=== PATIENT | female | born 1960 | race African-American/Black ===

== ENCOUNTER 2018-08-20 11:57 | Emergency (ER) | payer OTHER, SELFPAY ==
[2018-08-20 12:13] VITALS: BP 154/76; PULSE 72; RESP 16; TEMP 36.5; O2SAT 98; BMI 47.5
--- NOTE | 2018-08-20 12:30 | ED.SKABFB ---
HPI - Skin/Abscess/Foreign Bdy <Stephanie Villafana PA-C - Last Filed: 08/20/18 20:52> General Chief complaint: Skin/Abscess/Foreign Body Stated complaint: Rash on left buttock, and community relations assistant problem Time Seen by Provider: 08/20/18 12:21 Source: patient Mode of arrival: ambulatory Limitations: no limitations History of Present Illness HPI narrative: This 57-year-old female complains of increasingly painful rash which started on her left thigh crease about a week ago, 1 spot appeared on her vaginal area later and then ?welts? on her left gluteal area. She states initially somewhat itchy, then became painful, burning, radiates down her leg. She denies any fever, recent travel or recent illness. She denies any change in soaps, detergents, lotions. She denies any STD concerns or exposure to herpes. She does not know of any insect or spider bites. She has not noted any blisters, just states that she can feel bumps, though the lesions are difficult for her to see. She states she came in here because she is not able to get into her PCP until end of the week and this has become increasingly painful Related Data Previous Rx's Medication Instructions Recorded gabapentin 300 mg PO Q8H 7 Days #21 cap 08/20/18 lidocaine [Lidoderm] 2 patch TOP DAILY #30 each 08/20/18 valacyclovir [Valtrex] 1,000 mg PO TID 7 Days #21 tab 08/20/18 Review of Systems <Stephanie Villafana PA-C - Last Filed: 08/20/18 20:52> Review of Systems ROS Unobtainable: All systems reviewed & are unremarkable except as noted in HPI and below PFSH <Stephanie Villafana PA-C - Last Filed: 08/20/18 20:52> Medical History (Updated 08/20/18 @ 13:10 by Stephanie Villafana PA-C) Diabetes mellitus, insulin dependent (IDDM), controlled (Chronic) HTN (hypertension) (Chronic) Surgical History (Updated 08/20/18 @ 13:10 by Stephanie Villafana PA-C) History of Chiari malformation (Resolved) History of umbilical hernia repair (Resolved) Status post (Resolved) Social History Smoking Status: Never smoker Social History Smoking Status: Never smoker Exam <Stephanie Villafana PA-C - Last Filed: 08/20/18 20:52> Narrative Exam Narrative: GENERAL APPEARANCE: Patient sitting comfortably, in no distress. LUNGS: Clear to auscultation bilaterally. HEART: Rate and rhythm regular without murmur, normal S1 and S2, no S3 or S4. DERMATOLOGIC: Left glut there are clusters of erythematous papules a linear distribution on the medial L. glut and thigh. Some of the lesions are dry. There is single lesion left medial labia, also dry without surrounding erythema. These are in the S2 distribution Initial Vital Signs Initial Vital Signs: Vital Signs Temperature 97.7 F 08/20/18 12:13 Pulse Rate 72 08/20/18 12:13 Respiratory Rate 16 08/20/18 12:13 Blood Pressure 154/76 H 08/20/18 12:13 Pulse Oximetry 98 08/20/18 12:13 <Lucian Mckenzie DO - Last Filed: 08/21/18 07:17> Initial Vital Signs Initial Vital Signs: Vital Signs Temperature 97.7 F 08/20/18 12:13 Pulse Rate 72 08/20/18 12:13 Respiratory Rate 16 08/20/18 12:13 Blood Pressure 154/76 H 08/20/18 12:13 Pulse Oximetry 98 08/20/18 12:13 Course <Stephanie Villafana PA-C - Last Filed: 08/20/18 20:52> Vital Signs - 8 hr 08/20/18 13:11 Pulse Rate 74 Respiratory Rate 17 Blood Pressure 146/69 H Pulse Oximetry 97 <Lucian Mckenzie DO - Last Filed: 08/21/18 07:17> Vital Signs - 8 hr 08/20/18 13:11 Pulse Rate 74 Respiratory Rate 17 Blood Pressure 146/69 H Pulse Oximetry 97 Discharge Plan Departure Patient Disposition: Home Clinical Impression: Herpes zoster Qualifiers: Herpes zoster complications: without complications Qualified Code(s): B02.9 - Zoster without complications Discharge Date/Time: 08/20/18 13:12 Interventions: ED Discharge Assessment Last Done: 08/20/18 13:11 Instructions: DI for Shingles Activity Restrictions/Additional Instructions: Your rash is most consistent with shingles though not quite typical as I do not see any blisters today, however that could be because the rash is a few days old. Given that you had new spots show up a few days ago, we will treat with antivirals as we talked about. Please start this as soon as you pick it up and take at least 2 doses today (every 8 hours). I have also prescribed skin patches for you to put on as well as a medicine called gabapentin or Neurontin, which can be helpful for nerve pain. Remember that this can make you sleepy and not to drive. It is okay to take an extra dose at bedtime however if you find that you need it. Please follow-up with your PCP in a few days as you have planned. Prescriptions: New valacyclovir [Valtrex] 1 gram tablet 1,000 mg PO TID 7 Days Qty: 21 RF: 0 lidocaine [Lidoderm] 5 % adhesive patch,medicated 2 patch TOP DAILY Qty: 30 RF: 0 gabapentin 300 mg capsule 300 mg PO Q8H 7 Days Qty: 21 RF: 0 Referrals: Feng Larose MD [Non-Staff] - <Lucian Mckenzie DO - Last Filed: 08/21/18 07:17> Cosign ED Attending Cosrosemaryature Attestation: I was available for consultation during this patient's emergency department encounter
[2018-08-20 13:11] VITALS: BP 146/69; PULSE 74; RESP 17; O2SAT 97
== END 2018-08-20 13:12 | disposition home or self-care (01) ==
PROVIDERS: Emergency Provider Internal Medicine
DX: B02.9 Zoster without complications (principal)
CPT/HCPCS: 99282; 99283

== ENCOUNTER 2018-10-16 06:23 | Emergency (ER) | payer OTHER, SELFPAY ==
[2018-10-16 06:28] VITALS: BP 154/88; PULSE 67; RESP 16; TEMP 36.5; O2SAT 98; BMI 47.5
[2018-10-16 06:40] VITALS: BP 129/80; PULSE 57; RESP 14; O2SAT 99
--- NOTE | 2018-10-16 06:43 | DI.RAD.S_ITS ---
PROCEDURE: XR CHEST 1V INDICATIONS: chest pain TECHNIQUE: One view of the chest was acquired. COMPARISON: None. FINDINGS: Surgical changes and devices: None. Lungs and pleura: Lungs are clear. No pleural effusions or pneumothorax. Mediastinum: Mediastinal contours appear normal. Heart size is normal. Bones and chest wall: No suspicious bony lesions. Overlying soft tissues appear unremarkable. IMPRESSION: No acute cardiopulmonary disease. Dictated by: Amena Bazzi M.D. on 10/16/2018 at 8:18 Approved by: Amena Bazzi M.D. on 10/16/2018 at 8:18
--- NOTE | 2018-10-16 06:44 | ED.CHESTPAIN ---
HPI - Chest Pain General Chief Complaint: Chest Pain Stated Complaint: chest pains since last monday Time Seen by Provider: 10/16/18 06:28 Source: patient Mode of arrival: ambulatory Limitations: no limitations History of Present Illness HPI narrative: A 58-year-old female nonsmoker with hypertension presents with a chief complaint brief episodes of sharp and stabbing chest pain since Monday. She denies provocation, palliation or radiation. She denies associated symptoms such as dizziness, weakness, lightheadedness, diaphoresis, or shortness of breath. She denies any history of the same. She does travel frequently for work within the [employer]. She denies any history of cancer or blood clot. She denies any change in medication, diet or activity level. She denies any recent injury. She states that the episodes of pain are left anterior chest, sharp and stabbing, throbbing and last sometimes only seconds. MD complaint: chest pain Onset (ago): day(s) Duration: intermittent Pain location: left chest Severity: mild Quality: sharp Pain radiation: none Relieving factors: nothing Exacerbating factors: nothing Treatments prior to arrival chest pain: none Related Data On Oral Contraceptives: No Previous Rx's Medication Instructions Recorded lidocaine [Lidoderm] 2 patch TOP DAILY #30 each 08/20/18 Allergies Allergy/AdvReac Type Severity Reaction Status Date / Time lisinopril Allergy Verified 10/16/18 06:47 promethazine Allergy Verified 10/16/18 06:48 Review of Systems Constitutional Denies chills, Denies fever(s), Denies lethargy and Denies weakness Eyes Denies change in vision, Denies eye discharge, Denies irritation and Denies loss of vision ENT Ears, Nose, Mouth, and Throat: Denies change in voice, Denies neck pain and Denies sore throat Cardiovascular Reports chest pain, Denies irregular heart rhythm, Denies lightheadedness, Denies palpitations, Denies dyspnea, Denies dyspnea on exertion and Denies orthopnea Respiratory Denies cough, Denies dyspnea, Denies dyspnea on exertion and Denies wheezing Gastrointestinal Gastrointestinal: Denies abdominal pain, Denies change in bowel habits, Denies diarrhea, Denies nausea and Denies vomiting Genitourinary Denies hematuria, Denies flank pain, Denies urinary incontinence and Denies urinary urgency Musculoskeletal Denies neck pain Integumentary/Breasts Denies pruritus, Denies erythema, Denies rash and Denies wounds Neurologic Denies confusion, Denies loss of vision and Denies weakness Psychiatric Denies anxiety, Denies confusion, Denies depression, Denies homicidal ideation and Denies suicidal ideation Endocrine Denies palpitations Hematologic/Lymphatic Denies easy bruising Allergic/Immunologic Denies wheezing [facility] Medical History Diabetes mellitus, insulin dependent (IDDM), controlled (Chronic) HTN (hypertension) (Chronic) Surgical History History of Chiari malformation (Resolved) History of umbilical hernia repair (Resolved) Status post (Resolved) Social History (System 08/22/18 @ 09:04 by Neena Recinos) Smoking Status: Never smoker Social History Smoking Status: Never smoker Exam Narrative Exam Narrative: GENERAL: 58-year-old female appears younger than stated age, in mild distress, smiling and resting HEAD: Atraumatic. Normocephalic. No temporal or scalp tenderness. EYES: Pupils equal round and reactive. Extraocular motions intact. No scleral icterus. No injection or drainage. ENT: Nose without bleeding, purulent drainage or septal hematoma. Throat without erythema, tonsillar hypertrophy or exudate. Uvula midline. Airway patent. NECK: Trachea midline. No JVD or lymphadenopathy. Supple, nontender, no meningeal signs. CARDIOVASCULAR: Regular rate and rhythm without murmurs, gallops, or rubs. RESPIRATORY: Clear to auscultation. Breath sounds equal bilaterally. No wheezes, rales, or rhonchi. GASTROINTESTINAL: Abdomen soft, non-tender, nondistended. No hepato-splenomegaly, or palpable masses. No guarding. EXTREMITIES: No clubbing, cyanosis, or edema. No joint tenderness, effusion, or edema noted. BACK: Nontender without deformity or crepitance. No flank tenderness. NEURO: AOx3. SKIN: No rash or erythema. Initial Vital Signs Initial Vital Signs: Vital Signs Temperature 97.7 F 10/16/18 06:28 Pulse Rate 67 10/16/18 06:28 Respiratory Rate 16 10/16/18 06:28 Blood Pressure 154/88 H 10/16/18 06:28 Pulse Oximetry 98 10/16/18 06:28 Scores HEART Score Heart Score history: Slightly Suspicious Heart Score EKG: Normal Heart Score Age: 45-64 years old Heart Score risk factors: 1-2 risk factors Heart Score troponin: < or = to normal limit Heart Score Total: 2 Course Orders Ordered: Discontinued Medications Aspirin (Aspirin Chew) 324 mg PO NOW ONE Stop: 10/16/18 06:44 Last Admin: 10/16/18 06:51 Dose: 324 mg Vital Signs - 8 hr 10/16/18 06:28 10/16/18 06:40 Temperature 97.7 F Pulse Rate 67 57 L Respiratory Rate 16 14 Blood Pressure 154/88 H Blood Pressure [Right Arm] 129/80 Pulse Oximetry 98 99 MDM - Chest Pain Lab Data Result diagrams: 10/16/18 06:40 10/16/18 06:40 Lab Results 10/16/18 10/16/18 Range/Units 06:40 06:40 WBC 4.7 (4.5-11.0) X10^3/uL RBC 4.57 (4.0-5.2) X10^6/uL Hgb 13.5 (12.0-16.0) g/dL Hct 40.7 (36-46) % MCV 89.1 (80-100) fL MCH 29.5 (26-34) PG MCHC 33.1 (30-36) % RDW 13.3 (11.6-14.8) % Plt Count 342 (150-400) X10^3/uL Neut % (Auto) 43.3 L (50-75) % Lymph % (Auto) 38.2 (25-40) % [place] % (Auto) 11.3 (3-14) % Eos % (Auto) 6.0 H (2-4) % Baso % (Auto) 1.2 (0-2) % Neut # (Auto) 2000 (9654-0925) /uL Lymph # (Auto) 1800 (8836-4029) /uL [place] # (Auto) 500 (0-900) /uL Eos # (Auto) 300 (0-450) /uL Baso # (Auto) 100 (0-100) /uL Sodium 138 (137-145) mmol/L Potassium 4.1 (3.4-5.1) mmol/L Chloride 104 (98-107) mmol/L Carbon Dioxide 25 (22-32) mmol/L BUN 16 (7-17) mg/dL Creatinine 0.80 (0.52-1.04) mg/dL Estimated GFR > 60.0 (>60) mL/min BUN/Creatinine Ratio 20.0 (6-22) Glucose 149 H (70-100) mg/dL Calcium 9.6 (8.4-10.2) mg/dL Total Bilirubin 0.6 (0.2-1.3) mg/dL AST 18 (14-36) IU/L ALT 20 (9-52) IU/L Alkaline Phosphatase 49 (38-126) U/L Total Creatine Kinase 98 (30-135) U/L CK-MB (CK-2) TNP CK-MB (CK-2) Rel Index TNP Troponin I < 0.012 (0.01-0.034) ng/mL Total Protein 7.5 (6.3-8.2) g/dL Albumin 4.1 (3.5-5.0) g/dL Globulin 3.4 (1.7-4.1) g/dL Albumin/Globulin Ratio 1.2 (1.0-2.8) Lipase 140 (23-300) U/L ECG Data Attestation: I personally reviewed and interpreted this ECG as follows: Prior ECG tracings: not available for review Interpretation: EKG is normal sinus rhythm rate [54] and free of any signs of ischemia or ectopy. No ST segmental elevation or depression. No T wave inversions. P are 137, QRS 87, QTC 407 Discharge Plan Departure Patient Disposition: Home Clinical Impression: Atypical chest pain Discharge Date/Time: 10/16/18 07:55 Interventions: ED Discharge Assessment Last Done: 10/16/18 08:13 Instructions: DI for Atypical Chest Pain Activity Restrictions/Additional Instructions: *You have been diagnosed with [ atypical chest pain ] *What to do: *Take medications as directed *Follow up with your primary care provider in 2-3 days, call for an appointment. Let them know you were seen in the Emergency Department and that we ask that you be seen in follow up *Return to ER if you should have any new, worsening or concerning symptoms Prescriptions: No Action lidocaine [Lidoderm] 5 % adhesive patch,medicated 2 patch TOP DAILY Qty: 30 RF: 0 Referrals: Feng Larose MD [Primary Care Provider] -
--- NOTE | 2018-10-16 06:48 | ED_ITS ---
HPI - Chest Pain General Chief Complaint: Chest Pain Stated Complaint: chest pains since last monday Time Seen by Provider: 10/16/18 06:28 Source: patient Mode of arrival: ambulatory Limitations: no limitations History of Present Illness HPI narrative: A 58-year-old female nonsmoker with hypertension presents with a chief complaint brief episodes of sharp and stabbing chest pain since Monday. She denies provocation, palliation or radiation. She denies associated symptoms such as dizziness, weakness, lightheadedness, diaphoresis, or shortness of breath. She denies any history of the same. She does travel frequently for work within the [employer] [facility] [employer]. She denies any history of cancer or blood clot. She denies any change in medication, diet or activity level. She denies any recent injury. She states that the episodes of pain are left anterior chest, sharp and stabbing, throbbing and last sometimes only seconds. MD complaint: chest pain Onset (ago): day(s) Duration: intermittent Pain location: left chest Severity: mild Quality: sharp Pain radiation: none Relieving factors: nothing Exacerbating factors: nothing Treatments prior to arrival chest pain: none Related Data On Oral Contraceptives: No Previous Rx's Medication Instructions Recorded lidocaine [Lidoderm] 2 patch TOP DAILY #30 each 08/20/18 Allergies Allergy/AdvReac Type Severity Reaction Status Date / Time lisinopril Allergy Verified 10/16/18 06:47 promethazine Allergy Verified 10/16/18 06:48 Review of Systems Constitutional Denies chills, Denies fever(s), Denies lethargy and Denies weakness Eyes Denies change in vision, Denies eye discharge, Denies irritation and Denies loss of vision ENT Ears, Nose, Mouth, and Throat: Denies change in voice, Denies neck pain and Den ies sore throat Cardiovascular Reports chest pain, Denies irregular heart rhythm, Denies lightheadedness, Denies palpitations, Denies dyspnea, Denies dyspnea on exertion and Denies orthopnea Respiratory Denies cough, Denies dyspnea, Denies dyspnea on exertion and Denies wheezing Gastrointestinal Gastrointestinal: Denies abdominal pain, Denies change in bowel habits, Denies diarrhea, Denies nausea and Denies vomiting Genitourinary Denies hematuria, Denies flank pain, Denies urinary incontinence and Denies urinary urgency Musculoskeletal Denies neck pain Integumentary/Breasts Denies pruritus, Denies erythema, Denies rash and Denies wounds Neurologic Denies confusion, Denies loss of vision and Denies weakness Psychiatric Denies anxiety, Denies confusion, Denies depression, Denies homicidal ideation and Denies suicidal ideation Endocrine Denies palpitations Hematologic/Lymphatic Denies easy bruising Allergic/Immunologic Denies wheezing [facility] Medical History Diabetes mellitus, insulin dependent (IDDM), controlled (Chronic) HTN (hypertension) (Chronic) Surgical History History of Chiari malformation (Resolved) History of umbilical hernia repair (Resolved) Status post (Resolved) Social History (System 08/22/18 @ 09:04 by Neena Recinos) Smoking Status: Never smoker Social History Smoking Status: Never smoker Exam Narrative Exam Narrative: GENERAL: 58-year-old female appears younger than stated age, in mild distress, smiling and resting HEAD: Atraumatic. Normocephalic. No temporal or scalp tenderness. EYES: Pupils equal round and reactive. Extraocular motions intact. No scleral icterus. No injection or drainage. ENT: Nose without bleeding, purulent drainage or septal hematoma. Throat without erythema, tonsillar hypertrophy or exudate. Uvula midline. Airway patent. NECK: Trachea midline. No JVD or lymphadenopathy. Supple, nontender, no meningeal signs. CARDIOVASCULAR: Regular rate and rhythm without murmurs, gallops, or rubs. RESPIRATORY: Clear to auscultation. Breath sounds equal bilaterally. No wheezes, rales, or rhonchi. GASTROINTESTINAL: Abdomen soft, non-tender, nondistended. No hepato- splenomegaly, or palpable masses. No guarding. EXTREMITIES: No clubbing, cyanosis, or edema. No joint tenderness, effusion, or edema noted. BACK: Nontender without deformity or crepitance. No flank tenderness. NEURO: AOx3. SKIN: No rash or erythema. Initial Vital Signs Initial Vital Signs: Vital Signs Temperature 97.7 F 10/16/18 06:28 Pulse Rate 67 10/16/18 06:28 Respiratory Rate 16 10/16/18 06:28 Blood Pressure 154/88 H 06/04/19 06:28 Pulse Oximetry 98 10/16/18 06:28 Scores HEART Score Heart Score history: Slightly Suspicious Heart Score EKG: Normal Heart Score Age: 45-64 years old Heart Score risk factors: 1-2 risk factors Heart Score troponin: < or = to normal limit Heart Score Total: 2 Course Orders Ordered: Discontinued Medications Aspirin (Aspirin Chew) 324 mg PO NOW ONE Stop: 10/16/18 06:44 Last Admin: 10/16/18 06:51 Dose: 324 mg Vital Signs - 8 hr 10/16/18 06:28 10/16/18 06:40 Temperature 97.7 F Pulse Rate 67 57 L Respiratory Rate 16 14 Blood Pressure 154/88 H Blood Pressure [Right Arm] 129/80 Pulse Oximetry 98 99 MDM - Chest Pain Lab Data Result diagrams: 10/16/18 06:40 10/16/18 06:40 Lab Results 10/16/18 10/16/18 Range/Units 06:40 06:40 WBC 4.7 (4.5-11.0) X10^3/uL RBC 4.57 (4.0-5.2) X10^6/uL Hgb 13.5 (12.0-16.0) g/dL Hct 40.7 (36-46) % MCV 89.1 (80-100) fL MCH 29.5 (26-34) PG MCHC 33.1 (30-36) % RDW 13.3 (11.6-14.8) % Plt Count 342 (150-400) X10^3/uL Neut % (Auto) 43.3 L (50-75) % Lymph % (Auto) 38.2 (25-40) % [place] % (Auto) 11.3 (3-14) % Eos % (Auto) 6.0 H (2-4) % Baso % (Auto) 1.2 (0-2) % Neut # (Auto) 2000 (7595-8560) /uL Lymph # (Auto) 1800 (7982-9289) /uL [place] # (Auto) 500 (0-900) /uL Eos # (Auto) 300 (0-450) /uL Baso # (Auto) 100 (0-100) /uL Sodium 138 (137-145) mmol/L Potassium 4.1 (3.4-5.1) mmol/L Chloride 104 (98-107) mmol/L Carbon Dioxide 25 (22-32) mmol/L BUN 16 (7-17) mg/dL Creatinine 0.80 (0.52-1.04) mg/dL Estimated GFR > 60.0 (>60) mL/min BUN/Creatinine Ratio 20.0 (6-22) Glucose 149 H (70-100) mg/dL Calcium 9.6 (8.4-10.2) mg/dL Total Bilirubin 0.6 (0.2-1.3) mg/dL AST 18 (14-36) IU/L ALT 20 (9-52) IU/L Alkaline Phosphatase 49 (38-126) U/L Total Creatine Kinase 98 (30-135) U/L CK-MB (CK-2) TNP CK-MB (CK-2) Rel Index TNP Troponin I < 0.012 (0.01-0.034) ng/mL Total Protein 7.5 (6.3-8.2) g/dL Albumin 4.1 (3.5-5.0) g/dL Globulin 3.4 (1.7-4.1) g/dL Albumin/Globulin Ratio 1.2 (1.0-2.8) Lipase 140 (23-300) U/L ECG Data Attestation: I personally reviewed and interpreted this ECG as follows: Prior ECG tracings: not available for review Interpretation: EKG is normal sinus rhythm rate [54] and free of any signs of ischemia or ectopy. No ST segmental elevation or depression. No T wave inver sions. P are 137, QRS 87, QTC 407 Discharge Plan Departure Patient Disposition: Home Clinical Impression: Atypical chest pain Discharge Date/Time: 10/16/18 07:55 Interventions: ED Discharge Assessment Last Done: 10/16/18 08:13 Instructions: DI for Atypical Chest Pain Activity Restrictions/Additional Instructions: *You have been diagnosed with [ atypical chest pain ] *What to do: *Take medications as directed *Follow up with your primary care provider in 2-3 days, call for an appointment. Let them know you were seen in the Emergency Department and that we ask that you be seen in follow up *Return to ER if you should have any new, worsening or concerning symptoms Prescriptions: No Action lidocaine [Lidoderm] 5 % adhesive patch,medicated 2 patch TOP DAILY Qty: 30 RF: 0 Referrals: Feng Larose MD [Primary Care Provider] -
[2018-10-16] MEDS: ASPIRIN 81 MG TAB 324 MG PO (06:51)
[2018-10-16 06:54] LABS: Add Manual Diff / Slide Review NO; Basophils Absolute Auto 100 /uL (0-100); Basophils Percent Auto 1.2 % (0-2); Eosinophils Absolute Auto 300 /uL (0-450); Hematocrit 40.7 % (36-46); Hemoglobin 13.5 g/dL (12.0-16.0); Lymphocytes Absolute Auto 1800 /uL (1100-4500); Lymphocytes Percent Auto 38.2 % (25-40); Mean Corpuscular HGB Conc 33.1 % (30-36); Mean Corpuscular Hemoglobin 29.5 PG (26-34); Mean Corpuscular Volume 89.1 fL (80-100); Monocytes Absolute Auto 500 /uL (0-900); Monocytes Percent Auto 11.3 % (3-14); Neutrophils Absolute Auto 2000 /uL (1500-7000); Neutrophils Percent Auto 43.3 % (50-75); Platelet Count 342 X10^3/uL (150-400); Red Blood Cell Count 4.57 X10^6/uL (4.0-5.2); Red Cell Distribution Width 13.3 % (11.6-14.8); White Blood Cell Count 4.7 X10^3/uL (4.5-11.0)
[2018-10-16 07:06] LABS: Alanine Aminotransferase 20 IU/L (9-52); Albumin 4.1 g/dL (3.5-5.0); Albumin Globulin Ratio 1.2 (1.0-2.8); Alkaline Phosphatase 49 U/L (38-126); Aspartate Aminotransferase 18 IU/L (14-36); Bilirubin Total 0.6 mg/dL (0.2-1.3); Blood Urea Nitrogen 16 mg/dL (7-17); Calcium 9.6 mg/dL (8.4-10.2); Carbon Dioxide 25 mmol/L (22-32); Chloride 104 mmol/L (98-107); Creatine Kinase 98 U/L (30-135); Estimated Glomerular Filt Rate > 60.0 mL/min (>60); Globulin 3.4 g/dL (1.7-4.1); Glucose 149 mg/dL (70-100); HEMOLYSIS < 15 (0-50); Lipase 140 U/L (23-300); Potassium 4.1 mmol/L (3.4-5.1); Sodium 138 mmol/L (137-145); Total Protein 7.5 g/dL (6.3-8.2)
[2018-10-16 07:17] LABS: Troponin I < 0.012 ng/mL (0.01-0.034)
[2018-10-16 08:13] VITALS: BP 148/77; PULSE 81; RESP 18; O2SAT 97
== END 2018-10-16 07:55 | disposition home or self-care (01) ==
PROVIDERS: Emergency Provider Emergency Medicine; PCP Family Medicine
DX: R07.89 Other chest pain (principal)
CPT/HCPCS: 36591; 71045; 80053; 82550; 83690; 84484; 85025; 93005; 99282; 99285

== ENCOUNTER 2019-03-16 11:28 | Emergency (ER) | payer OTHER, SELFPAY ==
[2019-03-16 11:37] VITALS: BP 123/83; PULSE 77; RESP 16; TEMP 36.6; O2SAT 98; BMI 48.8
--- NOTE | 2019-03-16 12:22 | ED_ITS ---
HPI - Extremity Injury (Upper) <SHERRY Layne - Last Filed: 03/16/19 14:41> General Chief Complaint: Extremity Injury, Upper Stated Complaint: rash on right arm Time Seen by Provider: 03/16/19 12:00 Source: patient Mode of arrival: Ambulatory Limitations: no limitations History of Present Illness HPI narrative: The patient is a 58-year-old female nonsmoker with history of an angiogram on who presents for chief complaint of a rash on her arm. She had her angiogram up at [facility] and they accessed at her right radial. She states that yesterday she noticed a vague red rash around that site, and today it was up to almost her elbow. She says it is very light, but very itchy. She has not applied anything. She denies any chest pain, shortness of breath, swelling or rash anywhere else on her body Related Data Previous Rx's Medication Instructions Recorded lidocaine [Lidoderm] 2 patch TOP DAILY #30 each 08/20/18 triamcinolone acetonide 1 applictn TOP TID 10 Days #15 gram 03/16/19 Allergies Allergy/AdvReac Type Severity Reaction Status Date / Time lisinopril Allergy Verified 03/16/19 11:36 promethazine Allergy Verified 03/16/19 11:36 Review of Systems <SHERRY Layne - Last Filed: 03/16/19 14:41> Review of Systems Narrative: GENERAL: Denies chills, fatigue, malaise, fever, sweats. HEENT: Denies sinus pain, ear pain, sore throat, difficulty swallowing, dizziness. RESPIRATORY: Denies dyspnea, cough, wheezing, hemoptysis, sputum. CARDIOVASCULAR: Denies chest pain, palpitations, orthopnea, edema, GASTROINTESTINAL: Denies nausea, vomiting, abdominal pain, diarrhea, constipation, melena. : Denies dysuria, frequency, incontinence, hematuria, urinary retention. MUSCULOSKELETAL: denies weakness, joint pain, or bony pain SKIN: See HPI NEUROLOGIC: Denies weakness, headache, numbness, change in speech, confusion, seizures, incoordination. PSYCHIATRIC: No concerning psychosocial issues. 12 point review of systems is negative except for those stated above Patient History <SHERRY Layne - Last Filed: 03/16/19 14:41> Medical History Diabetes mellitus, insulin dependent (IDDM), controlled (Chronic) HTN (hypertension) (Chronic) Social History Smoking Status: Never smoker alcohol intake frequency: 0-2 drinks per day Alcohol type: hard liquor Substance Use Type: does not use Exam <SHERRY Layne - Last Filed: 03/16/19 14:41> Narrative Exam Narrative: GENERAL: This is a well-nourished, well-developed patient, in no acute distress HEAD: Atraumatic. Normocephalic. No temporal or scalp tenderness. EYES: Pupils equal round and reactive. Extraocular motions intact. No scleral icterus. No injection or drainage. ENT: Nose without bleeding, purulent drainage or septal hematoma. Throat without erythema, tonsillar hypertrophy or exudate. Uvula midline. Airway patent. NECK: Trachea midline. No JVD or lymphadenopathy. Supple, nontender, no meningeal signs. CARDIOVASCULAR: Regular rate and rhythm RESPIRATORY: Clear to auscultation. Breath sounds equal bilaterally. No wheezes, rales, or rhonchi. No cough. No increased respiratory effort. No accessory muscle use. GASTROINTESTINAL: Abdomen soft, non-tender, nondistended. No hepato- splenomegaly, or palpable masses. No guarding. EXTREMITIES: No clubbing, cyanosis, or edema. No joint tenderness, effusion, or edema noted. BACK: Nontender without deformity or crepitance. No flank tenderness. NEURO: AOx3. SKIN: Slight ecchymosis noted at right radial catheter access site, and no palpable hematoma. Diffuse red rash noted on anterior aspect up to just distal to elbow. Non circumferential. No rash observed on any other part of body. Initial Vital Signs Initial Vital Signs: Vital Signs Temperature 97.9 F 03/16/19 11:37 Pulse Rate 77 03/16/19 11:37 Respiratory Rate 16 03/16/19 11:37 Blood Pressure 123/83 03/16/19 11:37 Pulse Oximetry 98 03/16/19 11:37 <Sabiha Martinez DO - Last Filed: 03/16/19 15:41> Initial Vital Signs Initial Vital Signs: Vital Signs Temperature 97.9 F 03/16/19 11:37 Pulse Rate 77 03/16/19 11:37 Respiratory Rate 16 03/16/19 11:37 Blood Pressure 123/83 03/16/19 11:37 Pulse Oximetry 98 03/16/19 11:37 Course <Sabiha SHERRY Barnard - Last Filed: 03/16/19 14:41> Vital Signs Vital signs: Vital Signs - 8 hr 03/16/19 11:37 Temperature 97.9 F Pulse Rate 77 Respiratory Rate 16 Blood Pressure 123/83 Pulse Oximetry 98 <Sabiha Nenita MichelleDO - Last Filed: 03/16/19 15:41> Vital Signs Vital signs: Vital Signs - 8 hr 03/16/19 11:37 Temperature 97.9 F Pulse Rate 77 Respiratory Rate 16 Blood Pressure 123/83 Pulse Oximetry 98 MDM - Extremity Injury (Upper) <SD LayneBC - Last Filed: 03/16/19 14:41> MDM Narrative Medical decision making narrative: The patient is a 58-year-old female who presents with a chief complaint of an itchy rash on her right arm, above her catheter access site from her angio on . She has no signs of systemic infection or allergic reaction. Her exam correlates with a contact dermatitis, likely related to a rug cleaner hand that was used for her procedure given the location. I did place her on triamcinolone cream. Encouraged follow-up with primary care provider. Discussed monitoring for signs of worsening or systemic reaction including difficulty breathing and coming back to the emergency department for any acute concerns. Stated that she could use Benadryl for itching at night, but it would make her sleepy. Patient states understanding of plan of care, states understanding return precautions and follow-up precautions and has no questions or concerns upon discharge Discharge Plan Departure Patient Disposition: Home Clinical Impression: Contact dermatitis Qualifiers: Contact dermatitis type: unspecified Contact dermatitis trigger: unspecified trigger Qualified Code(s): L25.9 - Unspecified contact dermatitis, unspecified cause Discharge Date/Time: 03/16/19 13:13 Instructions: DI for Contact Dermatitis, DI for Rash Activity Restrictions/Additional Instructions: Your exam and story is consistent with contact dermatitis, possibly from a cl eaning solution during her procedure I have given you a prescription of a topical steroid. [facility] [place]. You can also use Benadryl, but be aware this can be sedating. Prescriptions: New triamcinolone acetonide 0.025 % cream 1 applictn TOP TID 10 Days Qty: 15 RF: 0 No Action lidocaine [Lidoderm] 5 % adhesive patch,medicated 2 patch TOP DAILY Qty: 30 RF: 0 Referrals: Feng Larose MD [Primary Care Provider] -
== END 2019-03-16 13:13 | disposition home or self-care (01) ==
PROVIDERS: Emergency Provider Nurse Practitioner Family; PCP Family Medicine
DX: L25.9 Unspecified contact dermatitis, unspecified cause (principal)
CPT/HCPCS: 99282; 99283

== ENCOUNTER → 2021-05-10 09:55 | Outpatient (CLI) | payer OTHER, SELFPAY ==
[2021-05-10 13:16] LABS: COVID19 -Nasal RAPID Negative (Negative)
== END ==
PROVIDERS: PCP Family Medicine; Referring Provider Physician Assistant; Visit Provider Physician Assistant
DX: Z01.812 Encounter for preprocedural laboratory examination (principal); Z20.822 Contact with and (suspected) exposure to COVID-19
CPT/HCPCS: 87635

== ENCOUNTER 2021-05-11 07:47 | Day surgery (SDC) | payer OTHER, SELFPAY ==
[2021-05-11] VITALS (7 sets, daily range): BP systolic 100–116; BP diastolic 61–79; PULSE 63–71; RESP 13–19; TEMP 36.1–36.5; O2SAT 92–99; BMI 49.0
--- NOTE | 2021-05-11 | PATH_ITS ---
[facility] Accession Number: [id number] . 01 Material submitted: . PART A: stomach - ANTRUM PART B: esophagus, E-G Junction - GE JUNCTION . 02 Diagnosis: A. Stomach, Antrum, Biopsy: Antral mucosa with reactive gastropathy and mild chronic inflammation. Negative for Helicobacter by immunohistochemistry. Negative for intestinal metaplasia. Negative for dysplasia and malignancy. . B. Gastroesophageal Junction, Biopsy: Squamocolumnar junctional mucosa with no diagnostic abnormality. Negative for intestinal metaplasia. Negative for dysplasia and malignancy. . MRV 05/19/2021 1338 Local . 02 Electronically signed: . Meagn Montemayor MD, Pathologist NPI- [id number] . 01 Gross description: . Part A: ANTRUM: Received in formalin is 1 fragment(s) of yepez, soft tissue measuring 0.3 x 0.2 x 0.2 cm submitted entirely in 1 cassette(s) Part B: GE JUNCTION: Received in formalin are 2 fragment(s) of yepez, soft tissue measuring 0.2 x 0.2 x 0.2 cm to 0.3 x 0.2 x 0.2 cm submitted entirely in 1 cassette(s) /TIEN 05/13/2021 1820 Local . 02 Microscopic: . A. An immunohistochemical stain was performed to evaluate for Helicobacter organisms and is negative. The control stain showed appropriate reactivity. . * This test was developed and its performance characteristics determined by [facility]. It has not been cleared or approved by the U.S. Food and Drug Administration. The FDA has determined that such clearance or approval is not necessary. This test is used for clinical purposes. It should not be regarded as investigational or for research. . 02 Pathologist provided ICD-10: R13.14 . 02 CPT . 293160, 973802, [id number] Performed at: 01 [facility] [address] [id number] MD Adair Tovar MD Phone: [phone] Performed at: 02 [facility] [place] [address] [place], [place] [id number] MD Megan Montemayor MD Phone: [phone]
--- NOTE | 2021-05-11 08:46 | PM.HP.1 ---
History of Present Illness History of Present Illness Date Patient Seen: 05/11/21 Time Patient Seen: 08:46 Chief complaint: SDC Narrative: I reviewed India Fragoso's note. No significant changes. Patient History Medical History Diabetes mellitus, insulin dependent (IDDM), controlled Hemorrhoids HTN (hypertension) Irregular heart rhythm Normal colonoscopy Surgical History History of Chiari malformation History of laminectomy History of tubal ligation History of umbilical hernia repair Status post Family & Social History Tobacco & Substance use: Smoking Status Never smoker alcohol intake frequency 0-2 drinks per day Substance Use Type does not use Meds Home Medications and Allergies Home Medications Medication Instructions Recorded Confirmed Type aspirin 81 mg tablet,delayed 81 mg PO DAILY 05/11/21 05/11/21 History release empagliflozin 25 mg tablet 25 mg PO DAILY 05/11/21 05/11/21 History (Jardiance) famotidine 40 mg tablet 40 mg PO DAILY 05/11/21 05/11/21 History ferrous sulfate 325 mg (65 mg 325 mg PO DAILY 05/11/21 05/11/21 History iron) tablet (iron) insulin glargine 100 unit/mL (3 10 unit SUBCUT BID 05/11/21 05/11/21 History mL) subcutaneous pen (Basaglar KwikPen U-100 Insulin) insulin lispro 100 unit/mL sliding scale dose SUBCUT 05/11/21 History subcutaneous pen (Humalog KwikPen (U-100) Insulin) isosorbide mononitrate 30 mg 30 mg PO DAILY 05/11/21 05/11/21 History tablet,extended release 24 hr losartan 100 mg tablet 50 mg PO DAILY 05/11/21 05/11/21 History metformin 1,000 mg tablet 1,000 mg PO BID 05/11/21 05/11/21 History multivitamin 1 tab PO DAILY 05/11/21 05/11/21 History nadolol 80 mg tablet 80 mg PO DAILY 05/11/21 05/11/21 History spironolactone 50 mg tablet 50 mg PO BID 05/11/21 05/11/21 History Allergies Allergy/AdvReac Type Severity Reaction Status Date / Time lisinopril Allergy Verified 05/11/21 08:26 promethazine Allergy Verified 05/11/21 08:26 Review of Systems Review of Systems ROS: Yes All systems reviewed with the patient and are negative except as otherwise documented Exam Const General: cooperative and comfortable Orientation: alert HENMT Head: normocephalic Ears: external ears normal Nose: external nose normal Face and sinus: normal facial exam Mouth: oral mucosae normal Eyes General: appearance normal, both eyes and all related structures Neck Neck: normal visual inspection Chest Chest: normal inspection of the chest Resp Effort & Inspection: normal respiratory effort Cardio Rate: regular rate GI Inspection: normal to inspection and obesity Skin General: no rashes or lesions noted and No jaundice Neuro General: patient alert and moves all extremities Cognition: normal cognition Speech: speech normal Extrem General: no pedal edema Psych Appearance: grossly normal Assessment & Plan Assessment & Plan narrative: 60-year-old female with upper abdominal pain sporadic. Dysphagia. Some improvement with famotidine. EGD is planned for today. Time Spent With Patient Critical Care time: I spent a total of [] minutes of critical care time on this patient's care today; this time is exclusive of procedural time.
--- NOTE | 2021-05-11 08:48 | PM.PREOP ---
Pre-operative Note COVID-19 COVID-19 status: Negative Result date/Date tested (Pos, Neg/Pending): 05/10/21 Interval Note History & Physical reviewed/Exam performed by Physician: Yes Changes to H&P: No ASA Class (for procedural sedation): II
[2021-05-11] MEDS: SODIUM CHLORIDE 0.9% 1,000 ML 84 ML IV (08:55)
--- NOTE | 2021-05-11 09:39 | P.OP.EGD_ITS ---
Operative Date/Time/Diagnoses Date of procedure: 05/11/21 Time of procedure: 09:39 Pre-op diagnosis: Abdominal pain dysphagia Post-op diagnosis: same Procedure & Clinicians Study performed: EGD with biopsies Same procedure as scheduled: Yes Indications: Abdominal pain dysphagia Surgeon: Tyler Casas Procedure Notes SCOAP/Timeout: Done Procedure in detail: After the risks and benefits were explained, written and verbal informed consent was obtained. The patient was brought into the procedure room and placed into the left lateral decubitus position. Please see nurse sas etl developer notes for sedation details. The scope was introduced into the mouth through the bite block and advanced under direct visualization to the 2nd portion of the duodenum. The scope was slowly withdrawn carefully examining the mucosa for any defects or lesions. Retroflexed views were accomplished in the stomach. The stomach was decompressed, the scope was then removed from the patient who tolerated the procedure well. Sedation minutes: 9 Complications: none Impression: 1. Duodenum: This was normal from the bulb through to the 2nd portion. 2. Stomach: Streaky erythema was noted in the antrum and biopsies were acquired for exclusion of H pylori or other pathology. No ulcers no outlet obstruction no mass lesions. No retained food debris. Retroflexed views of the LES were unremarkable. 3. Esophagus: The squamocolumnar junction correlated with the top of the gastric folds. GEJ was at 35 cm from the incisors. There was a very subtle perhaps 1 cm sliding hiatal hernia. The patient had minimal inflammation at a very subtle Schatzki is ring which was nonobstructing. I took 2 disruptive biopsies out of the Schatzki's ring at the GE junction. No additional pathology was appreciated in the esophagus. Endoscopic diagnosis 1. Gastropathy 2. Subtle sliding hiatal hernia 3. LA grade a erosive esophagitis 4. Nonobstructing Schatzki is status post disruptive biopsies x2 Post-procedure Plan for aftercare: 1. Await histopathology 2. Proceed with gastric emptying study as ordered. 3. Consider escalation in antisecretory therapy from famotidine up to a daily dose of proton pump inhibitor (omeprazole) 4. Follow-up in GI clinic with India lenz Disposition: PACU
== END 2021-05-11 10:35 | disposition home or self-care (01) ==
PROVIDERS: PCP Internal Medicine; Referring Provider Internal Medicine Gastroenterology; Visit Provider Internal Medicine Gastroenterology
PROC: 0DJ08ZZ Inspection of Upper Intestinal Tract, Via Natural or Artificial Opening Endoscopic (ICD-10-PCS; CPT 43235; principal; 2021-05-11 09:30)
DX: K29.50 Unspecified chronic gastritis without bleeding (principal); E11.9 Type 2 diabetes mellitus without complications; Z79.4 Long term (current) use of insulin; I10 Essential (primary) hypertension; K22.2 Esophageal obstruction; K31.9 Disease of stomach and duodenum, unspecified; K20.90 Esophagitis, unspecified without bleeding
CPT/HCPCS: 43239; J2704

== ENCOUNTER → 2021-05-24 07:45 | Outpatient (CLI) | payer OTHER, SELFPAY ==
--- NOTE | 2021-05-24 | DI.NM.S_ITS ---
PROCEDURE: NM GASTRIC EMPTYING STUDY RADIOPHARMACEUTICAL: 0.88 mCi Tc-99m sulfur colloid in an egg sandwich. INDICATIONS: Epigastric pain TECHNIQUE: A Tc-99m labeled sulfur colloid labeled egg sandwich or oatmeal was served to the patient. Anterior and posterior planar images of the abdomen were obtained at 0 minutes and 30 minutes, then at hourly intervals up to 4 hours. The patient was upright and ambulating during the interval. COMPARISON: None. FINDINGS: The stomach has normal size, morphology, and position. There is normal emptying of solid gastric contents from the stomach by visual inspection. No gastroesophageal reflux is visualized. The percentage of tracer retained at specific time points are as follows: Time point Percent gastric retention Normal range 30 minutes 60 70% or more 1 hour 24 30% to 90% 2 hours 12 60% or less 3 hours 8 30% or less IMPRESSION: Abnormally rapid gastric emptying which may represent dumping syndrome. Dictated by: Kamran Winters M.D. on 05/24/2021 at 12:26 Approved by: Kamran Winters M.D. on 05/24/2021 at 12:28
== END ==
PROVIDERS: PCP Internal Medicine; Referring Provider Physician Assistant; Visit Provider Physician Assistant
DX: R10.13 Epigastric pain (principal); R13.14 Dysphagia, pharyngoesophageal phase; K21.9 Gastro-esophageal reflux disease without esophagitis
CPT/HCPCS: 78264; A9541

== ENCOUNTER → 2021-06-08 07:55 | Outpatient (CLI) | payer OTHER, SELFPAY ==
--- NOTE | 2021-06-08 | DI.US.S_ITS ---
PROCEDURE: US ABDOMEN COMPLETE INDICATIONS: EPIGASTRIC PAIN TECHNIQUE: Real-time scanning was performed of the abdominal and retroperitoneal organs, with image documentation. COMPARISON: None. FINDINGS: Liver: The liver demonstrates normal size. The liver demonstrates generalized moderately increased echogenicity. This decreases ultrasound sensitivity for detection of hepatic masses. Gallbladder: No findings of gallstones or sludge are seen. The gallbladder wall is not thickened, measuring 3 mm or less. No specific pericholecystic fluid is seen. The sonographic Jimenes sign is negative. Biliary ducts: Intrahepatic bile ducts are non-dilated. Extrahepatic bile duct caliber measures 5 mm. Normal is 6-7 mm or less in diameter, or 10 mm or less post-cholecystectomy. Pancreas: Visualized portions of the pancreas are sonographically normal. Spleen: Spleen is normal in size and homogeneous in echotexture. Kidneys: Kidneys are normal in size and echotexture. Right kidney measures 11 cm long; left kidney measures 10.8 cm long. No hydronephrosis or nephrolithiasis. No solid masses. Bilateral simple cysts are seen, including a 1.8 simple cyst on the right superiorly and anteriorly. A on the left, the largest simple cysts can be seen superiorly measuring 2.2 cm. Aorta: Visualized aorta is normal in caliber at less than 3 cm. Iliacs: Proximal common iliac arteries are normal in caliber at less than 2.5 cm. IVC: Intrahepatic inferior vena cava is patent. Miscellaneous: No free abdominal fluid. IMPRESSION: The gallbladder demonstrates a normal sonographic appearance. No biliary dilatation is seen. Enlarged, fatty liver. Incidental note is made of: Simple appearing renal cysts Dictated by: Ari Johnson M.D. on 06/08/2021 at 8:20 Approved by: Ari Johnson M.D. on 06/08/2021 at 8:21
== END ==
PROVIDERS: PCP Internal Medicine; Referring Provider Physician Assistant; Visit Provider Physician Assistant
DX: R10.13 Epigastric pain (principal); N28.1 Cyst of kidney, acquired
CPT/HCPCS: 76700

== ENCOUNTER → 2023-12-22 10:45 | Outpatient (CLI) | payer OTHER, SELFPAY ==
--- NOTE | 2023-12-22 10:53 | EKG_ITS ---
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
== END ==
PROVIDERS: PCP Internal Medicine; Referring Provider Orthopaedic Surgery Foot and Ankle Surgery; Visit Provider Orthopaedic Surgery Foot and Ankle Surgery
DX: Z01.818 Encounter for other preprocedural examination (principal)
CPT/HCPCS: 93005; 93010